=== PATIENT | female | born 1955 | race Caucasian/White ===

== ENCOUNTER 2025-01-16 07:39 | Outpatient (CLI) | payer MEDICARE, SELFPAY ==
--- NOTE | 2025-01-16 09:12 | P.ANES_ITS ---
Anesthesia Charges Start Date/Time Anesthesia Start Date: 01/16/25 Anesthesia Start Time: 08:40 Stop Date/Time Anesthesia Stop Date: 01/16/25 Anesthesia Stop Time: 09:10 Coding CPT Codes CPT Codes: ANES LWR INTST SCR COLSC - 04765 ([id number]) P2 - PATIENT W/MILD SYST DISEASE, QK - SOUND TESTER 2-4 CNCRNT ANES PROC, QX - CHARGING MANIPULATOR SVC W/ MD MED DIRECTION
--- NOTE | 2025-01-16 09:12 | W.ANESCHARGE ---
Anesthesia Charges Start Date/Time Anesthesia Start Date: 01/16/25 Anesthesia Start Time: 08:40 Stop Date/Time Anesthesia Stop Date: 01/16/25 Anesthesia Stop Time: 09:10 Coding CPT Codes CPT Codes: ANES LWR INTST SCR COLSC - 95080 ([id number]) P2 - PATIENT W/MILD SYST DISEASE, QK - MAINTENANCE HELPER UTILITY ENGINEER 2-4 CNCRNT ANES PROC, QX - WARP SCOURING VAT TENDER SVC W/ MD MED DIRECTION
--- NOTE | 2025-01-16 09:24 | P.ANES_ITS ---
Anesthesia Charges Start Date/Time Anesthesia Start Date: 01/16/25 Anesthesia Start Time: 08:40 Stop Date/Time Anesthesia Stop Date: 01/16/25 Anesthesia Stop Time: 09:10 Coding CPT Codes CPT Codes: GAYLE LWR INTST SCR COLSC - [id number] ([id number]) QK - SCRAP SHEAR OPERATOR 2-4 CNCRNT ANEViviane PROC, QX - CUSTOMS BROKERAGE MANAGER SVC W/ MD MED DIRECTION, P2 - PATIENT W/MILD SYST DISEASE
--- NOTE | 2025-01-16 09:24 | W.ANESCHARGE ---
Anesthesia Charges Start Date/Time Anesthesia Start Date: 01/16/25 Anesthesia Start Time: 08:40 Stop Date/Time Anesthesia Stop Date: 01/16/25 Anesthesia Stop Time: 09:10 Coding CPT Codes CPT Codes: GAYLE LWR INTST SCR COLSC - [id number] ([id number]) QK - CHIPPER MACHINE OPERATOR 2-4 CNCRNT ANEViviane PROC, QX - COLOR DIPPER SVC W/ MD MED DIRECTION, P2 - PATIENT W/MILD SYST DISEASE
== END 2025-01-16 07:40 | disposition home or self-care (01) ==
PROVIDERS: PCP Family Medicine; Visit Provider Internal Medicine Gastroenterology
DX: Z12.11 Encounter for screening for malignant neoplasm of colon (principal); Z86.0109 Personal history of other colon polyps; K57.30 Diverticulosis of large intestine without perforation or abscess without bleeding
CPT/HCPCS: 00812; 45378; J2704